=== PATIENT | female | born 1965 | race Caucasian/White ===

== ENCOUNTER 2018-06-02 12:31 | Emergency (ER) | payer OTHER ==
[2018-06-02 12:43] VITALS: O2SAT 99
[2018-06-02] MEDS ORDERED: (Novolin R) Insulin Human Regular 100 units/ml vial IVP STA (12:53)
[2018-06-02] MEDS ORDERED: Sodium Chloride 0.9% 1,000 ML IV ONE (12:53)
[2018-06-02] MEDS ORDERED: (Novolin R) Insulin Human Regular 100 units/ml vial ONE (13:10)
--- NOTE | 2018-06-02 13:10 | C.PDOC ---
History Of Present Illness 52 year old female presents for evaluation of generalized weakness for 1 day. The pt reports prior visit to PMD day where her blood sugar measures around 500. Denies fever, chills, dysuria, CP, and any other associated symptoms. Time Seen by Provider: 06/02/18 12:47 Chief Complaint (Nursing): High Blood Sugar History Per: Patient History/Exam Limitations: no limitations Onset/Duration Of Symptoms: Days (x1 day ) Current Symptoms Are (Timing): Still Present Associated Infectious Symptoms: denies: Urinary Urgency, Urinary Frequency Recent travel outside of the [place]: No Past Medical History Reviewed: Historical Data, Nursing Documentation, Vital Signs Vital Signs: Last Vital Signs Temp 97.8 F 06/02/18 12:39 Pulse 79 06/02/18 12:39 Resp 18 06/02/18 12:39 BP 137/87 06/02/18 12:39 Pulse Ox 99 06/02/18 12:39 Family History: States: Unknown Family Hx - Social History Hx Alcohol Use: No Hx Substance Use: No - Immunization History Hx Tetanus Toxoid Vaccination: No Hx Influenza Vaccination: No Hx Pneumococcal Vaccination: No Review Of Systems Except As Marked, All Systems Reviewed And Found Negative. Constitutional: Positive for: Other (hyperglycemia.). Negative for: Fever, Chills Cardiovascular: Negative for: Chest Pain Genitourinary: Negative for: Dysuria Physical Exam - Physical Exam Appears: Non-toxic, No Acute Distress Skin: Warm, Dry Head: Atraumatic, Normacephalic Eye(s): bilateral: Normal Inspection Oral Mucosa: Moist Neck: Normal ROM, Supple Chest: Symmetrical, No Deformity Cardiovascular: Rhythm Regular Respiratory: Normal Breath Sounds, No Rales, No Rhonchi, No Wheezing Gastrointestinal/Abdominal: Normal Exam, Soft, No Tenderness Extremity: Bilateral: Atraumatic, Normal Color And Temperature, Normal ROM Neurological/Psych: Oriented x3, Normal Speech, Normal Cognition ED Course And Treatment - Laboratory Results Result Diagrams: 06/02/18 13:04 06/02/18 13:04 Lab Interpretation: No Acute Changes (No signs of DKA) ECG: Interpreted By Me, Viewed By Me ECG Rhythm: Sinus Rhythm Interpretation Of ECG: nonspecific T wave abnormalities Rate From EC O2 Sat by Pulse Oximetry: 99 (RA) Pulse Ox Interpretation: Normal Medical Decision Making Medical Decision Making: Initial plan: -Blood sent. -EKG -Novolin R -Urine culture -Urinalysis Progress/Update: Pt stable for discharge home. Prescribed Glucophage. Advised to follow-up with PMD within 2-3 days. Disposition Counseled Patient/Family Regarding: Studies Performed, Diagnosis, Need For Followup, Rx Given - Disposition Referrals: Ciara Triana, [employer]EMENT COORDINATOR-C [Nurse Practitioner Certified] - Disposition: HOME/ ROUTINE Disposition Time: 14:00 Condition: STABLE Prescriptions: MetFORMIN [glucoPHAGE] 500 mg PO BID #30 tab Instructions: Hyperglycemia, Adult, Blood Glucose Monitoring, Diabetes and Diet Forms: [employer] ([place]), Work Excuse - Clinical Impression Clinical Impression: Hyperglycemia - Scribe Statement The provider has reviewed the documentation as recorded by the Scribe (Sendy Carmichael) Provider Attestation: All medical record entries made by the Scribe were at my direction and personally dictated by me. I have reviewed the chart and agree that the record accurately reflects my personal performance of the history, physical exam, medical decision making, and the department course for this patient. I have also personally directed, reviewed, and agree with the discharge instructions and disposition.
[2018-06-02] MEDS ORDERED: Sodium Chloride 0.9% 250 ML IV ONE (13:11)
[2018-06-02 13:13] LABS: BASO % 0.9 % (0.0-2.0); EOS # 0.1 K/uL (0.0-0.7); EOS % 2.4 % (0.0-4.0); HEMOGLOBIN 13.9 g/dL (11.0-16.0); LYMPH # 1.7 K/uL (1.0-4.3); LYMPH % 39.2 % (20.0-40.0); MEAN CORPUSCULAR HEMOGLOBIN 28.3 pg (27.0-31.0); MEAN CORPUSCULAR HGB CONC 33.7 g/dL (33.0-37.0); MEAN PLATELET VOLUME 8.9 fL (7.2-11.7); MONO # 0.4 K/uL (0.0-0.8); MONO % 8.2 % (0.0-10.0); NEUT # 2.1 K/uL (1.8-7.0); NEUT % 49.3 % (50.0-75.0); NRBC % 0.1 % (0.0-2.0); RBC 4.92 Mil/uL (3.80-5.20); RED CELL DISTRIBUTION WIDTH 13.1 % (11.5-14.5); WHITE BLOOD COUNT 4.3 K/uL (4.8-10.8)
[2018-06-02 13:16] LABS: VENOUS BLOOD GAS BASE EXCESS 0.3 mmol/L (0.0-2.0); VENOUS BLOOD GAS PCO2 42 mmHg (40-60); VENOUS BLOOD GAS PO2 48 mm/Hg (30-55); VENOUS BLOOD PH 7.39 (7.32-7.43)
[2018-06-02 13:42] LABS: ALB/GLOB RATIO 1.1 (1.0-2.1); ALBUMIN 4.3 g/dL (3.5-5.0); ALT/SGPT 265 U/L (9-52); AST/SGOT 222 U/L (14-36); BLOOD UREA NITROGEN 9 mg/dL (7-17); CALCIUM 8.7 mg/dl (8.6-10.4); GFR NON-AFRICAN AMERICAN > 60
[2018-06-02 14:46] VITALS: BP 125/86; PULSE 77; RESP 20; TEMP 97.9
--- NOTE | 2018-06-04 10:04 | CARD ---
APPROVED REPORT Date of service: 06/02/2018 EKG Measurement Heart [id number] <Conclusion> Normal sinus rhythm Junctional ST depression, probably normal Borderline ECG
== END 2018-06-02 14:46 | disposition home or self-care (01) ==
LOC: C.ER 12:31
DX: R73.9 Hyperglycemia, unspecified (principal)
CPT/HCPCS: 80053; 82009; 82803; 82948; 85025; 93005; 96361; 96374; 99285; J7030